=== PATIENT | male | born 1985 | race Caucasian/White ===

== ENCOUNTER 2016-06-23 09:04 | Emergency (ER) | payer OTHER ==
[2016-06-23 10:39] LABS: ABSOLUTE NEUTROPHIL COUNT 6.7 K/mm3 (1.8-7.7); BASO % 0.3 % (0.2-1.0); EOS # 0.1 (0.0-0.5); EOS % 0.6 % (0.9-2.9); HEMATOCRIT 41.8 % (32.0-52.0); IMM NEUT% 0.3 % (0-1); LYMPH # 1.3 (1.0-4.8); LYMPH % 15.5 % (15-45); MEAN CELL VOLUME 88.2 fl (80.0-94.0); MEAN CORPUSCULAR HEMOGLOBIN 29.5 pg (27.0-31.0); MEAN CORPUSCULAR HGB CONC 33.5 g/dl (33.0-37.0); MEAN PLATELET VOLUME 9.7 fl (7.4-10.4); MONO # 0.5 (0.0-0.8); MONO % 5.8 % (4-12); NEUT % 77.5 % (43-75); PLATELET COUNT 346 K/mm3 (130-400); RED CELL DISTRIBUTION WIDTH 12.6 % (11.5-14.5)
--- NOTE | 2016-06-23 10:51 | RAD ---
History: Dyspnea with chest pain. Comparison: None. Technique: 2 views Findings: The soft tissue and bony structures are unremarkable. The heart size is appropriate. No infiltrate, effusion or pneumothorax is observed. The hilar and mediastinal structures are normal. Impression: 1. A negative 2 view chest
[2016-06-23 10:57] LABS: ALB/GLOB RATIO 1.4 (>1.0); ALBUMIN 4.5 gm/dL (3.5-5.7); CALCIUM 9.5 mg/dL (8.6-10.3)
[2016-06-23 11:04] LABS: TROPONIN I < 0.01 ng/ml (0.0-0.06)
[2016-06-23 11:13] LABS: THYROID STIMULATING HORMONE 1.12 uIU/ml (0.34-5.60)
== END 2016-06-23 11:55 | disposition home or self-care (01) ==
LOC: ED 09:04
DX: R07.9 Chest pain, unspecified (principal); R06.02 Shortness of breath; R20.9 Unspecified disturbances of skin sensation; I10 Essential (primary) hypertension; Z87.891 Personal history of nicotine dependence